=== PATIENT | male | born 1965 | race Caucasian/White ===

== ENCOUNTER 2017-12-13 11:51 | Emergency (ER) | payer OTHER ==
[~2017-12-13] VITALS: Ht 165.1 cm; Wt 83.9 kg
[2017-12-13 11:56] VITALS: BP 123/70
--- NOTE | 2017-12-13 11:58 | NUR ---
Pt ambulated to chair E.
--- NOTE | 2017-12-13 12:05 | NUR ---
52M BIB SELF C/O MID-THROAT PAIN, NON-RADIATING, 9/10 X ONE AND A HALF MONTHS. PT STATES WHEN HE TITLS HIS HEAD BACK, HIS THROAT HURTS AND IT FEELS LIKE SOMETHING IS STUCK INSIDE; PT C/O PAIN WITH EATING AND DRINKING; BL LUNG SOUNDS CLEAR, RR EVEN/UNLABORED, EQUAL RISE/FALL OF CHEST NOTED AT THIS TIME; PT SPEAKING IN FULL, CLEAR SENTENCES AT THIS TIME; PT AA&OX4, STATES NO N/V/D AT THIS TIME WITH EVEN AND STEADY GAIT; PT RESTING IN CHAIR, POSITIONED FOR COMFORT; ER MD MADE AWARE OF STATUS. WILL CONTINUE TO MONITOR.
--- NOTE | 2017-12-13 12:58 | NUR ---
PT REQUESTED WATER; WATER PROVIDED PER REQUEST; PT TOLERATED WATER WELL; WILL CONTINUE TO MONITOR.
--- NOTE | 2017-12-13 13:52 | NUR ---
Patient being evaluated by DR JOSEPH at [facility].
--- NOTE | 2017-12-13 13:52 | NUR ---
Sumit mata in [facility] - 12/13/17 at 1352 by [facility] Patient being evaluated by DR JOSEPH at bedside.
--- NOTE | 2017-12-13 14:17 | NUR ---
PT C/O DASILVA;NOTIFIED DR JOSEPH ORDER IBRUPROFEN 600MG PO.
[2017-12-13] MEDS ORDERED: IBUPROFEN 600 MG TAB ONE (14:20)
[2017-12-13] MEDS ORDERED: IBUPROFEN 600 MG TAB PO ONE (15:10)
[2017-12-13 15:14] VITALS: BP 124/68
--- NOTE | 2017-12-13 15:14 | NUR ---
Patient discharged with v/s stable. Written and verbal after care instructions given and explained. Patient alert, oriented and verbalized understanding of instructions. Ambulatory with steady gait. All questions addressed prior to discharge. ID band removed. Patient advised to follow up with PMD. Rx of IBUPROFEN 600MG TAB given. Patient educated on indication of medication including possible reaction and side effects. Opportunity to ask questions provided and answered.
== END 2017-12-13 15:14 | disposition home or self-care (01) ==
LOC: MED 11:51
DX: R13.10 Dysphagia, unspecified (principal)
CPT/HCPCS: 70360; 99284

== ENCOUNTER 2019-08-24 17:10 | Inpatient (IN) | payer OTHER ==
[~2019-08-24] VITALS: Ht 162.6 cm; Wt 76.7 kg
[2019-08-24 18:01] VITALS: BP 129/77
--- NOTE | 2019-08-24 18:27 | NUR ---
patient ambulated with assistance to bed 07
--- NOTE | 2019-08-24 19:26 | NUR ---
53 Y/O MALE PT STATES HE WAS SEEN IN [place] FOR RECTAL PAIN AND THEY SAID HE HAD INFECTION. PT STATES SWELLING TO [place] W/ 07/01 RECTAL PAIN. PAIN IS TENDER TO TOUCH; WARMTH ERYTHEMA NOTED. PAIN IS PROVOKED WHEN SITTING AND MOVING AROUND. DENIES N/V/D. LAST BM WAS THIS MORNING AND NORMAL. APPETITE CHANGES NOTED; STATE HASN'T EATEN TODAY. ERMD MADE AWARE OF STATUS. SIDE RAILSX1. DAUGTHER AT BEDSIDE. MEDHX: DENIES RX:DENIES NKDA
[2019-08-24] MEDS ORDERED: MORPHINE SULFATE 4 MG/ML SYR IVP ONE (20:00)
--- NOTE | 2019-08-24 20:30 | NUR ---
PT GOING TO CT VIA W/C
[2019-08-24 20:38] LABS: HEMATOCRIT 38.5 % (36-52); HEMOGLOBIN 12.8 g/dL (12.0-18.0); MEAN CORPUSCULAR HEMOGLOBIN 31 pg (27-31); MEAN CORPUSCULAR HGB CONC 33 g/dL (33-37); MEAN CORPUSCULAR VOLUME 92.4 fL (80-94); PLATELET COUNT (AUTO) 297 K/uL (140-450); RED BLOOD CELL COUNT(AUTO) 4.16 MIL/uL (4.20-6.10); RED CELL DISTRIBUTION WIDTH 12.7 % (11.6-13.7)
[2019-08-24 20:44] LABS: ANION GAP 16.7 (8-16); CARBON DIOXIDE 24.7 mmol/L (21-32); CREATININE 0.8 mg/dL (0.7-1.3); POTASSIUM 3.4 mmol/L (3.5-5.1)
[2019-08-24 20:47] LABS: PROTHROMBIN TIME 9.8 secs (10.8-13.4)
[2019-08-24 20:49] LABS: ALBUMIN 2.7 g/dL (3.4-5.0); TOTAL BILIRUBIN 0.5 mg/dL (0.0-1.0)
[2019-08-24] MEDS ORDERED: VANCOMYCIN 1,000 MG in DEXTROSE 5% 250 ML IV ONE (20:55)
[2019-08-24] MEDS ORDERED: NACL 0.9% 1,000 ML IV ONE (20:55)
[2019-08-24] MEDS ORDERED: PIPERACILLIN/TAZOBACTAM 3.375 GM in DEXTROSE 5% 50 ML IV ONE (20:55)
--- NOTE | 2019-08-24 20:58 | NUR ---
PT. WHEELCHAIRED BACK TO BED FROM CT.
[2019-08-24 21:00] LABS: EOSINOPHILS % (MANUAL) 1 % (0-4); LYMPHOCYTES % (MANUAL) 11 % (20-46); MONOCYTES % (MANUAL) 3 % (5-12)
[2019-08-24 21:01] LABS: METAMYELOCYTES % 1 % (0-0); PROMYELOCYTES % 1 % (0-0)
[2019-08-24] MEDS ORDERED: PIPERACILLIN/TAZOBACTAM 3.375 GM VIAL IV ONE (21:04)
[2019-08-24] MEDS ORDERED: VANCOMYCIN 1,000 MG VIAL ONE (21:04)
[2019-08-24] MEDS ORDERED: HYDROcodone/APAP 5/325 MG 1 TAB TAB PO PRN ×2 (22:45)
[2019-08-24] MEDS ORDERED: VANCOMYCIN PER PHARMACY MC PRN (22:45)
[2019-08-24] MEDS ORDERED: MORPHINE SULFATE 2 MG/ML SYR IVP PRN (22:45)
[2019-08-24] MEDS ORDERED: MAGNESIUM OXIDE 400 MG TAB PO PRN (22:45)
[2019-08-24] MEDS ORDERED: BISACODYL 10 MG SUPP RC PRN (22:45)
[2019-08-24] MEDS ORDERED: ZOLPIDEM 5 MG TAB PO PRN (22:45)
[2019-08-24] MEDS ORDERED: IPRATROPIUM 0.02% 0.5 MG/2.5 ML NEBU INH PRN (22:45)
[2019-08-24] MEDS ORDERED: ACETAMINOPHEN 325 MG TAB PO PRN (22:45)
[2019-08-24] MEDS ORDERED: POTASSIUM CHLORIDE 10 MEQ TABER PO PRN (22:45)
[2019-08-24] MEDS ORDERED: LORazepam 2 MG/ML VIAL IVP PRN (22:45)
[2019-08-24] MEDS ORDERED: DOCUSATE SODIUM 250 MG GELCAP PO PRN (22:45)
[2019-08-24] MEDS ORDERED: MAG SULF 2000 MG/WATER PREMIX 50 ML IV PRN (22:45)
[2019-08-24] MEDS ORDERED: guaiFENesin DM 200/20 MG-10 ML 10 ML UDC PO PRN (22:45)
[2019-08-24] MEDS ORDERED: ACETAMINOPHEN 650 MG SUPP RC PRN (22:45)
[2019-08-24] MEDS ORDERED: cloNIDine 0.1 MG TAB PO PRN (22:45)
[2019-08-24] MEDS ORDERED: SODIUM PHOSPHATE 118 ML ENEM RC PRN (22:45)
[2019-08-24] MEDS ORDERED: ONDANSETRON 4 MG/2 ML VIAL IVP PRN (22:45)
[2019-08-24] MEDS ORDERED: ALBUTEROL 0.083% 2.5 MG/3 ML NEBU INH PRN (22:45)
[2019-08-24] MEDS ORDERED: diphenhydrAMINE 50 MG/ML VIAL IVP PRN (22:45)
[2019-08-24] MEDS ORDERED: ALUMINUM HYD/MAG/SIMETHICONE 30 ML UDC PO PRN (22:45)
[2019-08-24 22:50] VITALS: BP 122/65
--- NOTE | 2019-08-24 22:50 | NUR ---
Patient will be admitted to care of DR. REBOLLAR . Admited to Med/Surg. Will go to room 120 A Belongings list completed. Report to PATRICK KAHN .
--- NOTE | 2019-08-24 22:50 | NUR ---
RECIEVED PT. AAOX4 , NID , FRM. ER / JOHN WITH CC: PERIANAL PAIN / ABCESS , BEARABLE PAIN HE SAID AT THIS TIME , AMBULATES TO BED . NO S/SXS OF ACUTE DISTRESS NOTED AT THIS TIME . IV SITE INTACT AND PATENT . PLAN OF CARE DISCUSSED AND VERBALIZED UNDERSTANDING - CALL LIGHT WITHIN REACH . PUT ON SAFETY PRECAUTION PROTOCOL . PROVIDE URINAL - REMINDS THE USE OF URINAL . FOR URINE COLLECTION INSTRUCTED . WILL CONT. TO MONITOR. Addendum: 08/25/19 at 0057 by Zabrina Garcia RN REFUSED TO SHOW CHANDRA ANAL ABCESS , HE WANTS A MALE DOCTOR. INCREASE ORAL INTAKE TOLERATED EMPHASIZED. ADMISSION ASSESSMENT DONE - MRSA NARES SPECIMEN CILLECTED AND SENT TO LAB.
--- NOTE | 2019-08-25 00:10 | NUR ---
RUCHI FREELY - SENT URINE SPECIMEN TO LAB.
[2019-08-25 02:35] LABS: APPEARANCE,URINE SL CLOUDY (CLEAR); BILIRUBIN,URINE NEGATIVE (NEGATIVE); BLOOD, URINE NEGATIVE (NEGATIVE); COLOR,URINE YELLOW (YELLOW); LEUKOCYTE ESTERASE ,URINE NEGATIVE (NEGATIVE); NITRITE, URINE NEGATIVE (NEGATIVE); UGLUCOSE NEGATIVE (NEGATIVE)
[2019-08-25 04:00] VITALS: BP 100/60
[2019-08-25] MEDS ORDERED: PIPERACILLIN/TAZOBACTAM 3.375 GM VIAL IV ONE (05:59)
[2019-08-25] MEDS: PIPERACILLIN/TAZOBACTAM 3.375 GM in DEXTROSE 5% 50 ML IV SCH ×3 (06:05→20:19)
--- NOTE | 2019-08-25 07:41 | NUR ---
RECEIVED REPORT FROM NIGHT HIFT RN FOR CONTINUITY OF CARE. PT IN STABLE CONDITION AT THIS TIME
[2019-08-25 08:00] VITALS: BP 95/57
--- NOTE | 2019-08-25 08:19 | NUR ---
PATIENT HAS BEEN SCREENED AND CATEGORIZED LOW NUTRITION RISK. PATIENT WILL BE SEEN WITHIN 7 DAYS OF ADMISSION. 08/31/[address]
--- NOTE | 2019-08-25 09:41 | NUR ---
PT RESTING IN BED. ALL NEEDS MET
--- NOTE | 2019-08-25 11:20 | NUR ---
PCP Appointment: KAYKAY contacted Kayla from Dr. Barbara Diaz' office [phone]. KAYKAY arranged for hospital follow up to be at 3:00pm on 09/02/2019 @ [address] [place] [address]. KAYKAY left appointment slip in patient's chart to be given at discharge. No further needs identified.
--- NOTE | 2019-08-25 11:24 | NUR ---
PT SLEEPING. ALL NEEDS MET.
--- NOTE | 2019-08-25 13:33 | NUR ---
DC PLANNIN YRS OLD MALE PATIENT WAS ADMITTED FROM HOME WITH A DX OF RECTAL ABSCESS. PT HAS NO MEDICAL HISTORY. CT OF PELVIS SHOWS MILD INFLAMMATORY CHANGES. ADMINISTERED IV ANTIBIOTICS VANCO AND ZOSYN AND PAIN MANAGEMENT. SURGICAL CONSULT WITH DR LUA FOR POSSIBLE INCISION AND DRAINAGE. DC PLAN TO GO HOME WITH MD RECOMMENDATION . CM TO FOLLOW
--- NOTE | 2019-08-25 13:47 | NUR ---
PT RESTING IN BED. ALL NEEDS MET. PT NPO FOR PROCEDURE LATER THIS EVENING
[2019-08-25 16:00] VITALS: BP 118/81
--- NOTE | 2019-08-25 16:42 | NUR ---
ENDORSED PT TO NIKOS FOR CONTINUITY OF CARE. PT BEING TAKEN TO OR FOR PROCEDURE
--- NOTE | 2019-08-25 17:00 | NUR ---
RECEIVED REPORT FROM DAY SHIFT NURSE LATASHA FOR CONTINUITY OF CARE. PT IN STABLE CONDITION. RESPIRATIONS EVEN AND UNLABORED, ROOM AIR. IV INTACT AND PATENT. SAFETY MEASURES IN PLACE. BED IN LOW POSITION. CALL LIGHT AT BEDSIDE. WILL CONTINUE TO MONITOR.
--- NOTE | 2019-08-25 17:05 | NUR ---
PT OFF UNIT FOR I&D ABSCESS. PT IN STABLE CONDITION.
[2019-08-25] MEDS ORDERED: LIDOCAINE/EPI MPF 1%1:200000 30 ML VIAL INJ ONE (17:18)
[2019-08-25] MEDS ORDERED: BUPIVACAINE-MPF/EPI 0.25% 30 ML VIAL INJ ONE (17:19)
[2019-08-25] MEDS ORDERED: fentaNYL 0.05 MG/ML VIAL ONE ×2 (17:47→18:17)
[2019-08-25] MEDS ORDERED: LIDOCAINE 2% 1000 MG/50 ML VIAL INJ ONE (18:02)
[2019-08-25] MEDS ORDERED: LIDOCAINE 1% 500 MG/50 ML VIAL ONE (18:02)
[2019-08-25] MEDS ORDERED: BUPIVACAINE-MPF 0.25% 30 ML VIAL INJ ONE (18:02)
[2019-08-25] MEDS ORDERED: ONDANSETRON 4 MG/2 ML VIAL IVP PRN (18:15)
[2019-08-25] MEDS ORDERED: HYDROmorphone 1 MG/ML AMP IVP PRN (18:15)
--- NOTE | 2019-08-25 19:05 | NUR ---
RECIEVED REPORT FROM NURSE NIKOS Oneal PT. IS STILL IN THE OR.
--- NOTE | 2019-08-25 19:05 | NUR ---
GAVE REPORT TO PROJECT SCIENTIST NURSE FOR CONTINUITY OF CARE.
--- NOTE | 2019-08-25 19:35 | NUR ---
RECIEVED PT FROM PACU , S/P I & D OF CHANDRA ANAL ABCESS DONE BY DR. BLAND . PT. IS FULLY AWAKE , MOVES ALL EXTREMITIES FULLY , NO S/ S OF ACUTE DISTRESS NOTED AT THIS TIME . IV SITE INTACT AND PATENT. WITH DRESSING IN BOTH BUTT ON THE SUFACE - THE OR NURSE SAID DR. BLAND PUT RECTAL PACK IN SIDE - DRY DRY AND INTACT - NO SIGNS OF BLEEDING NOTED AT THIAS TIME . C/O PAIN BUT PT. SAID BEARABLE AT THIS TIME . POC DISCUSSED AND VEBALIZED UNDERSTANDING . - CALL LIGHT WITHIN REACH - REMINDS USE OF CALL LIGHT WHEN NEEDED.ON SAFETY/FALL PRECAUTION PROTOCOL . WILL CONT. TO MONITOR. CALL LIGHT WITH IN REACH.
[2019-08-25 20:00] VITALS: BP 110/60
[2019-08-25] MEDS ORDERED: VANCOMYCIN 1,000 MG in DEXTROSE 5% 250 ML IV SCH (22:00)
--- NOTE | 2019-08-25 22:00 | NUR ---
MADE ROUNDS , BEARABLE PAIN HE SAID . NO FURTHER COMPLAIN MADE. WILL CONT. TO MONITOR.
--- NOTE | 2019-08-26 | NUR ---
MADE ROUNDS . VOIDED FREELY / URINAL - NO COMPLAIN MADE AT THIS TIME. CALL LIGHT NWITHIN REACH
--- NOTE | 2019-08-26 02:00 | NUR ---
MADE ROUNDS . SLEEPING.
[2019-08-26] MEDS: PIPERACILLIN/TAZOBACTAM 3.375 GM in DEXTROSE 5% 50 ML IV SCH (02:02)
[2019-08-26 04:00] VITALS: BP 100/60
[2019-08-26] MEDS ORDERED: amLODIPine 5 MG TAB ONE (10:10)
[2019-08-26] MEDS ORDERED: FUROSEMIDE 40 MG TAB ONE (10:10)
[2019-08-26] MEDS ORDERED: LISINOPRIL 20 MG TAB ONE (10:11)
[2019-08-26] MEDS ORDERED: DIVALPROEX 500 MG TABER PO ONE (10:11)
[2019-08-26] MEDS ORDERED: DILTIAZEM 60 MG TAB ONE (13:38)
[2019-08-26] MEDS ORDERED: ONDANSETRON 4 MG/2 ML VIAL ONE ×2 (17:44)
[2019-08-26] MEDS ORDERED: DEXAMETHASONE 4 MG/ML VIAL ONE ×2 (17:44)
[2019-08-26] MEDS ORDERED: DESFLURANE 240 ML BTL INH ONE ×2 (17:44)
[2019-08-26] MEDS ORDERED: PROPOFOL 200 MG/20 ML VIAL IV ONE ×2 (17:44)
[2019-08-26] MEDS ORDERED: KETOROLAC 30 MG/ML VIAL ONE ×2 (17:44)
[2019-08-27 20:11] LABS: ANION GAP 12.6 (8-16); CARBON DIOXIDE 27.3 mmol/L (21-32); CREATININE 0.8 mg/dL (0.7-1.3); POTASSIUM 3.9 mmol/L (3.5-5.1)
[2019-08-28 11:13] LABS: WHITE BLOOD COUNT (AUTO) 27.9 K/uL (4.8-10.8)
[2019-08-28 11:14] LABS: HEMATOCRIT 36.3 % (36-52); HEMOGLOBIN 11.8 g/dL (12.0-18.0); LYMPHOCYTES % (AUTO) 5.2 % (20.5-51.1); MEAN CORPUSCULAR HEMOGLOBIN 30 pg (27-31); MEAN CORPUSCULAR HGB CONC 33 g/dL (33-37); MEAN CORPUSCULAR VOLUME 92.8 fL (80-94); MONOCYTES % (AUTO) 4.2 % (1.7-9.3); NEUTROPHILS % (AUTO) 90.5 % (42.2-75.2); PLATELET COUNT (AUTO) 300 K/uL (140-450); RED BLOOD CELL COUNT(AUTO) 3.91 MIL/uL (4.20-6.10); RED CELL DISTRIBUTION WIDTH 13.1 % (11.6-13.7)
[2019-08-28 11:15] LABS: BASOPHILS % (AUTO) 0.1 % (0.0-2.0); LYMPHOCYTES # (AUTO) 1.4 K/uL (2.0-11.5); MONOCYTES # (AUTO) 1.2 K/uL (0.8-1.0); NEUTROPHILS # (AUTO) 25.3 K/uL (1.8-7.7)
--- NOTE | 2019-08-30 11:43 | NUR ---
As per [facility] Portal, Auth Number: [id number]. Auth Status: Approved. DOS Approved: 08/24/19-08/27/19. LOC: Med-Surg.
== END 2019-08-26 20:05 | disposition home or self-care (01) | DRG 951 ==
LOC: MED 17:10 → MTU 22:25
PROVIDERS: ADMIT Internal Medicine Pulmonary Disease; ATTEND Internal Medicine Pulmonary Disease
PROC: 0J9B0ZZ Drainage of Perineum Subcutaneous Tissue and Fascia, Open Approach (ICD-10-PCS; principal; 2019-08-25 17:00)
DX: K61.39 Other ischiorectal abscess (principal); E44.1 Mild protein-calorie malnutrition; K61.31 Horseshoe abscess; E66.9 Obesity, unspecified; K59.00 Constipation, unspecified; Z68.29 Body mass index [BMI] 29.0-29.9, adult
CPT/HCPCS: 36415; 72192; 80048; 80053; 80202; 81003; 83605; 85025; 85610; 85730; 87040; 87081; 87086; 96365; 96375; 99285; J1100; J1885; J2001; J2270; J2405; J2543; J2704; J3010; J3370; J3490; J7030; J7060

== ENCOUNTER 2019-09-27 16:54 | Emergency (ER) | payer OTHER ==
[~2019-09-27] VITALS: Ht 160 cm; Wt 80.7 kg
[2019-09-27 17:24] VITALS: BP 133/84
--- NOTE | 2019-09-27 18:14 | NUR ---
Patient ambulated to bed 2. RN evaluating patient at bedside.
--- NOTE | 2019-09-27 18:23 | NUR ---
54 y/o c/c surgery site bleeding/pus per pt. sx performed at [facility] one month ago per pt. sx site above anus. per pt has noted blood/pus past 4 days. DENIES N/V/D; SKIN IS PINK/WARM/DRY; AAOX4 WITH EVEN AND STEADY GAIT; LUNGS CLEAR BL; HR EVEN AND REGULAR; PT DENIES ANY FEVER, CP, SOB, OR COUGH AT THIS TIME; PATIENT STATES PAIN OF 8/10 AT THIS TIME; VSS; PATIENT POSITIONED FOR COMFORT; HOB ELEVATED; BEDRAILS UP X2; BED DOWN. ER MD MADE AWARE OF PT STATUS.
--- NOTE | 2019-09-27 19:10 | NUR ---
ENDORSED TO PM SHIFT RN.
--- NOTE | 2019-09-27 19:36 | NUR ---
PATIENT ALERT AND ORIENTED, BREATHING EVEN AND UNLABORED
[2019-09-27] MEDS ORDERED: ONDANSETRON 4 MG/2 ML VIAL IVP ONE (19:40)
[2019-09-27] MEDS ORDERED: NACL 0.9% 1,000 ML IV ONE (19:40)
[2019-09-27] MEDS ORDERED: MORPHINE SULFATE 4 MG/ML SYR IVP ONE (19:40)
[2019-09-27 21:14] LABS: APPEARANCE,URINE CLEAR (CLEAR); BILIRUBIN,URINE NEGATIVE (NEGATIVE); BLOOD, URINE NEGATIVE (NEGATIVE); COLOR,URINE YELLOW (YELLOW); LEUKOCYTE ESTERASE ,URINE NEGATIVE (NEGATIVE); NITRITE, URINE NEGATIVE (NEGATIVE); PH,URINE 5.5 (5.0-9.0); UGLUCOSE NEGATIVE (NEGATIVE)
[2019-09-27 21:43] LABS: BASOPHILS # (AUTO) 0.1 K/uL (0.00-0.22); BASOPHILS % (AUTO) 1.5 % (0.0-2.0); EOSINOPHILS # (AUTO) 0.1 K/uL (0-0.4); EOSINOPHILS % (AUTO) 1.2 % (0.0-4.0); HEMATOCRIT 41.8 % (36-52); LYMPHOCYTES # (AUTO) 2.9 K/uL (2.0-11.5); LYMPHOCYTES % (AUTO) 38.7 % (20.5-51.1); MEAN CORPUSCULAR HEMOGLOBIN 31 pg (27-31); MEAN CORPUSCULAR HGB CONC 33 g/dL (33-37); MEAN CORPUSCULAR VOLUME 92.2 fL (80-94); MONOCYTES # (AUTO) 0.4 K/uL (0.8-1.0); MONOCYTES % (AUTO) 5.9 % (1.7-9.3); NEUTROPHILS % (AUTO) 52.7 % (42.2-75.2); PLATELET COUNT (AUTO) 277 K/uL (140-450); RED BLOOD CELL COUNT(AUTO) 4.54 MIL/uL (4.20-6.10); RED CELL DISTRIBUTION WIDTH 13.9 % (11.6-13.7); WHITE BLOOD COUNT (AUTO) 7.5 K/uL (4.8-10.8)
--- NOTE | 2019-09-27 21:46 | NUR ---
PATIENT ALERT AND ORIENTED, BREATHING EVEN AND UNLABORED
[2019-09-27 22:09] LABS: ALBUMIN 3.5 g/dL (3.4-5.0); ANION GAP 11.8 (8-16); CARBON DIOXIDE 27.8 mmol/L (21-32); CREATININE 0.8 mg/dL (0.7-1.3); POTASSIUM 3.6 mmol/L (3.5-5.1); TOTAL BILIRUBIN 0.2 mg/dL (0.0-1.0)
--- NOTE | 2019-09-27 23:07 | NUR ---
BREAKING PRIMARY NURSE, PT LEFT TO CT SCAN.
--- NOTE | 2019-09-27 23:10 | NUR ---
PT RETURN FROM CT
--- NOTE | 2019-09-27 23:10 | NUR ---
PT BACK FROM CT VIA WHEELCHAIR
--- NOTE | 2019-09-27 23:47 | NUR ---
PATIENT ALERT AND ORIENTED, BREATHING EVEN AND UNLABORED
[2019-09-28 00:45] VITALS: BP 126/75
--- NOTE | 2019-09-28 00:45 | NUR ---
Patient discharged with v/s stable. Written and verbal after care instructions ABOUT ABSCESS AND ANAL FISTULA given and explained IN [place]. Patient alert, oriented and verbalized understanding of instructions. Ambulatory with steady gait. All questions addressed prior to discharge. ID band removed. Patient advised to follow up with PMD. Rx of COLACE, NORCO, FLAGYL, AND CIPROFLOXACIN given. Patient educated on indication of medication including possible reaction and side effects. Opportunity to ask questions provided and answered.
== END 2019-09-28 00:45 | disposition home or self-care (01) ==
LOC: MED 16:54
DX: K61.0 Anal abscess (principal)
CPT/HCPCS: 36415; 72193; 80053; 81003; 83605; 83690; 85025; 87040; 96374; 96375; 99284; J2270; J2405; J7030; Q9967

== ENCOUNTER 2019-11-05 06:16 | Day surgery (SDC) | payer OTHER ==
[~2019-11-05] VITALS: Ht 152.4 cm; Wt 2.3 kg
[2019-11-05 06:52] LABS: BASOPHILS % (AUTO) 0.7 % (0.0-2.0); EOSINOPHILS # (AUTO) 0.3 K/uL (0-0.4); EOSINOPHILS % (AUTO) 4.7 % (0.0-4.0); HEMATOCRIT 47.5 % (36-52); LYMPHOCYTES % (AUTO) 44.8 % (20.5-51.1); MEAN CORPUSCULAR HEMOGLOBIN 31 pg (27-31); MEAN CORPUSCULAR HGB CONC 34 g/dL (33-37); MEAN CORPUSCULAR VOLUME 92.5 fL (80-94); MONOCYTES # (AUTO) 0.5 K/uL (0.8-1.0); MONOCYTES % (AUTO) 7.2 % (1.7-9.3); NEUTROPHILS # (AUTO) 2.9 K/uL (1.8-7.7); NEUTROPHILS % (AUTO) 42.6 % (42.2-75.2); PLATELET COUNT (AUTO) 268 K/uL (140-450); RED BLOOD CELL COUNT(AUTO) 5.14 MIL/uL (4.20-6.10); RED CELL DISTRIBUTION WIDTH 14.2 % (11.6-13.7); WHITE BLOOD COUNT (AUTO) 6.7 K/uL (4.8-10.8)
[2019-11-05] MEDS ORDERED: metroNIDAZOLE 500 MG/NS PREMIX 100 ML IV SCH (06:58)
[2019-11-05] MEDS ORDERED: HYDROGEN PEROXIDE 3% 240 ML BTL TP ONE (07:17)
[2019-11-05 07:21] LABS: ALBUMIN 3.9 g/dL (3.4-5.0); ANION GAP 11.7 (8-16); CARBON DIOXIDE 29.9 mmol/L (21-32); POTASSIUM 3.6 mmol/L (3.5-5.1)
[2019-11-05] MEDS ORDERED: BUPIVACAINE-MPF 0.25% 30 ML VIAL INJ ONE (07:21)
[2019-11-05] MEDS ORDERED: LIDOCAINE 1% 500 MG/50 ML VIAL ONE (07:21)
[2019-11-05] MEDS ORDERED: BUPIVACAINE-MPF 0.5% 30 ML VIAL INJ ONE (07:22)
[2019-11-05] MEDS ORDERED: ONDANSETRON 4 MG/2 ML VIAL IVP PRN (07:35)
[2019-11-05] MEDS ORDERED: HYDROmorphone 1 MG/ML AMP IVP PRN (07:35)
[2019-11-05] MEDS ORDERED: KETOROLAC 30 MG/ML VIAL ONE (07:37)
[2019-11-05] MEDS ORDERED: ROCURONIUM 50 MG/5 ML VIAL IV ONE (07:37)
[2019-11-05] MEDS ORDERED: ONDANSETRON 4 MG/2 ML VIAL ONE (07:37)
[2019-11-05] MEDS ORDERED: DESFLURANE 240 ML BTL INH ONE (07:37)
[2019-11-05] MEDS ORDERED: PROPOFOL 200 MG/20 ML VIAL IV ONE (07:37)
[2019-11-05] MEDS ORDERED: SUCCINYLCHOLINE CHLORIDE 200 MG/10 ML VIAL IVP ONE (07:37)
[2019-11-05] MEDS ORDERED: DEXAMETHASONE 4 MG/ML VIAL ONE (07:37)
[2019-11-05 07:45] LABS: CREATININE 0.8 mg/dL (0.6-1.3); TOTAL BILIRUBIN 0.5 mg/dL (0.0-1.0)
[2019-11-05] MEDS ORDERED: GELATIN SPONGE 100 1 SPG TP ONE (08:01)
[2019-11-05] MEDS: HYDROmorphone PFS 2 MG/ML SYR ONE ×2 (09:07→09:17)
== END 2019-11-05 12:15 | disposition home or self-care (01) ==
LOC: MDS 06:16 → MMU 06:17 → MDS 12:15
PROVIDERS: ATTEND Surgery
DX: K60.3 Anal fistula (principal); E66.9 Obesity, unspecified
CPT/HCPCS: 36415; 46020; 71045; 80053; 85025; J0330; J0690; J1100; J1170; J1885; J2001; J2405; J2704; J3490; J7060; J7120

== ENCOUNTER 2020-03-05 18:59 | Emergency (ER) | payer OTHER ==
[~2020-03-05] VITALS: Ht 167.6 cm; Wt 74.8 kg
[2020-03-05 19:03] VITALS: BP 123/79
--- NOTE | 2020-03-05 19:15 | NUR ---
JOAQUIN KRISHNA AT BEDSIDE EVALUATING PT.
--- NOTE | 2020-03-05 19:20 | NUR ---
54M PRESENTS TO ED WITH C/O LLQ, RLQ ABDOMINAL PAIN THAT IS NON RADIATING. PT STATES ITS BEEN INTERMITTENT X 2 MONTHS S/P SURGERY THAT PT CANNOT RECALL THE NAME OF. PT DENIES ANY N/V BUT + FOR DIARRHEA. BOWEL SOUNDS HYPERACTIVE ON ALL QUADRANTS. ERMD MADE AWARE. DENIES LOC. PT NEGATIVE FOR COVID SCREENING. PMHX: REFER TO TRIAGE COMMENT NKA
[2020-03-05] MEDS ORDERED: KETOROLAC 60 MG/2 ML VIAL IM ONE (19:25)
--- NOTE | 2020-03-05 19:40 | NUR ---
PT MEDICATED WITH TORADOL IM TOLERATED WELL. NIKIAR
--- NOTE | 2020-03-05 19:51 | NUR ---
Dr. Parisi examining patient.
[2020-03-05 20:22] VITALS: BP 125/83
--- NOTE | 2020-03-05 20:24 | NUR ---
Patient discharged with v/s stable. Written and verbal after care instructions given and explained. Patient alert, oriented and verbalized understanding of instructions. Ambulatory with steady gait. All questions addressed prior to discharge. ID band removed. Patient advised to follow up with PMD. Rx of PRILOSEC, CIPRO, IMODIUM, MOTRIN given. Patient educated on indication of medication including possible reaction and side effects. Opportunity to ask questions provided and answered.
== END 2020-03-05 20:24 | disposition home or self-care (01) ==
LOC: MED 18:59
DX: R10.13 Epigastric pain (principal); R19.7 Diarrhea, unspecified; Z98.890 Other specified postprocedural states
CPT/HCPCS: 96372; 99283; J1885